=== PATIENT | female | born 2000 | race Hispanic/Latino ===

== ENCOUNTER 2018-03-10 15:23 | Observation (INO) | payer BC ==
[~2018-03-10] VITALS: Ht 157.5 cm; Wt 71.2 kg
[2018-03-10] MEDS ORDERED: SODIUM CHLORIDE 0.9% 500ML 500 ML IV ONE (15:54)
[2018-03-10 15:56] LABS: BASOPHILS % (AUTO) 0.5 % (0.0-5.0); EOSINOPHILS % (AUTO) 0.8 % (0.0-8.0); LYMPHOCYTES % (AUTO) 29.5 % (21.0-51.0); MEAN CORPUSCULAR HEMOGLOBIN 27.7 pg (27.0-33.0); MEAN CORPUSCULAR HGB CONC 33.1 g/dL (32.0-36.0); MEAN CORPUSCULAR VOLUME 83.7 fL (80-100); MONOCYTES % (AUTO) 12.3 % (3.0-13.0); NEUTROPHILS % (AUTO) 56.9 % (40.0-77.0); PLATELET COUNT (AUTO) 302 K/uL (130-400); RED BLOOD CELL COUNT(AUTO) 2.12 MIL/uL (4.00-5.50); RED CELL DISTRIBUTION WIDTH 14.4 % (11.0-15.5); WHITE BLOOD COUNT (AUTO) 7.5 K/uL (4.8-10.8)
[2018-03-10 16:08] LABS: INR 0.93 (0.85-1.15); PARTIAL THROMBOPLASTIN TIME 23.6 SEC (26.3-35.5); PROTHROMBIN TIME 9.8 SEC (9.6-11.6)
[2018-03-10 16:17] LABS: CREATININE 0.7 mg/dL (0.5-1.5); HEMATOCRIT 17.7 % (36-48); POTASSIUM 3.7 mmol/L (3.5-5.1)
[2018-03-10 16:22] LABS: ALBUMIN 3.3 g/dL (3.5-5.0); BILIRUBIN,TOTAL 0.1 mg/dL (0.2-1.0); TOTAL PROTEIN, SERUM 7.3 g/dL (6.0-8.3)
[2018-03-10 16:46] LABS: APPEARANCE,URINE Clear (CLEAR); BILIRUBIN,URINE Negative (NEGATIVE); COLOR,URINE Yellow (YELLOW); GLUCOSE, URINE (UA) Negative (NEGATIVE); KETONES,URINE Trace mg/dL (NEGATIVE); LEUKOCYTE ESTERASE ,URINE Small (NEGATIVE); NITRATE,URINE Negative (NEGATIVE); OCCULT BLOOD,URINE Large (NEGATIVE); PROTEIN,URINE Negative (NEGATIVE); UROBILINOGEN,URINE 0.2 mg/dL (0.2-1.0)
[2018-03-10 16:49] LABS: HCG,QUAL RESULT NEGATIVE (NEGATIVE)
[2018-03-10 17:05] LABS: BACTERIA,URINE Few /HPF (None Seen); RBC,URINE 26-50 /HPF (0-1)
[2018-03-10 18:30] VITALS: BP 128/73
[2018-03-10] MEDS: DEXTROSE 5 %-0.45 % NACL 1,000 ML IV SCH (19:00)
[2018-03-10 19:55] VITALS: BP 120/72
[2018-03-10] MEDS: FAMOTIDINE 20MG TAB 20 MG TAB PO SCH (21:42)
[2018-03-10] MEDS ORDERED: PHARMACY COMMUNICATION MISC SCH (22:00)
[2018-03-11] MEDS: NORETHINDRONE-ETHINYL ESTRAD 1 TABLET PO SCH ×2 (00:34→08:40)
[2018-03-11 01:00] VITALS: BP 103/61
[2018-03-11] MEDS ORDERED: SODIUM CHLORIDE 0.9% 1000ML 1,000 ML IV ONE (02:00)
[2018-03-11 03:30] VITALS: BP 103/59
[2018-03-11] MEDS: DEXTROSE 5 %-0.45 % NACL 1,000 ML IV SCH ×2 (04:48→14:05)
[2018-03-11 06:10] LABS: HEMATOCRIT 24.7 % (36-48); MEAN CORPUSCULAR HEMOGLOBIN 27.8 pg (27.0-33.0); MEAN CORPUSCULAR HGB CONC 33.3 g/dL (32.0-36.0); MEAN CORPUSCULAR VOLUME 83.4 fL (80-100); NUCLEATED RED BLOOD CELLS 0.1 % (0.0-0.19); PLATELET COUNT (AUTO) 233 K/uL (130-400); RED BLOOD CELL COUNT(AUTO) 2.96 MIL/uL (4.00-5.50); RED CELL DISTRIBUTION WIDTH 14.2 % (11.0-15.5); RETICULOCYTE % (AUTO) 3.69 % (0.42-2.23)
[2018-03-11 06:36] LABS: % IRON SATURATION 9.2 % (22-44)
[2018-03-11 07:26] VITALS: BP 103/63
[2018-03-11] MEDS: FAMOTIDINE 20MG TAB 20 MG TAB PO SCH ×2 (08:39→21:02)
[2018-03-11] MEDS: ENOXAPARIN SODIUM 40 MG/0.4 ML SYRINGE SQ SCH (09:00)
[2018-03-11 11:22] VITALS: BP 105/64
[2018-03-11 15:26] VITALS: BP 110/62
[2018-03-11 19:58] VITALS: BP 119/70
[2018-03-12 00:24] VITALS: BP 107/68
[2018-03-12] MEDS: DEXTROSE 5 %-0.45 % NACL 1,000 ML IV SCH (01:04)
[2018-03-12 03:48] VITALS: BP 102/63
[2018-03-12 04:55] LABS: BASOPHILS % (AUTO) 0.6 % (0.0-5.0); EOSINOPHILS % (AUTO) 1.4 % (0.0-8.0); HEMATOCRIT 23.9 % (36-48); LYMPHOCYTES % (AUTO) 29.6 % (21.0-51.0); MEAN CORPUSCULAR HEMOGLOBIN 28.3 pg (27.0-33.0); MEAN CORPUSCULAR HGB CONC 33.8 g/dL (32.0-36.0); MEAN CORPUSCULAR VOLUME 83.6 fL (80-100); MONOCYTES % (AUTO) 12.8 % (3.0-13.0); NEUTROPHILS % (AUTO) 55.6 % (40.0-77.0); PLATELET COUNT (AUTO) 298 K/uL (130-400); RED BLOOD CELL COUNT(AUTO) 2.86 MIL/uL (4.00-5.50); RED CELL DISTRIBUTION WIDTH 14.5 % (11.0-15.5); WHITE BLOOD COUNT (AUTO) 7.3 K/uL (4.8-10.8)
[2018-03-12 07:53] VITALS: BP 110/51
[2018-03-12] MEDS: FAMOTIDINE 20MG TAB 20 MG TAB PO SCH (08:52)
[2018-03-12] MEDS: NORETHINDRONE-ETHINYL ESTRAD 1 TABLET PO SCH (08:52)
[2018-03-12] MEDS: ENOXAPARIN SODIUM 40 MG/0.4 ML SYRINGE SQ SCH (09:00)
[2018-03-12 11:21] VITALS: BP 111/60
== END 2018-03-12 11:40 | disposition home or self-care (01) ==
LOC: EDH 15:23 → OBSVTOIN 17:47 → EDHIP 17:47 → INTOOBSV 17:47 → WSH 18:30
PROVIDERS: ADMIT Family Medicine; ATTEND Family Medicine
DX: D64.9 Anemia, unspecified (principal); N92.0 Excessive and frequent menstruation with regular cycle; Z83.3 Family history of diabetes mellitus; Z82.49 Family history of ischemic heart disease and other diseases of the circulatory system; Z80.3 Family history of malignant neoplasm of breast
CPT/HCPCS: 36415 ×3; 36430 ×2; 76856; 80053; 81001; 81025; 82728; 83540; 83550; 85025 ×2; 85027; 85045; 85060; 85610; 85730; 86850; 86900; 86901; 86922 ×2; 87088; 99285; G0378 ×42; J7030; J7040; P9016 ×2; J1650